=== PATIENT | male | born 1945 | race Caucasian/White ===

== ENCOUNTER 2021-02-02 14:31 | Emergency (ER) | payer BC ==
[~2021-02-02] VITALS: Ht 188 cm; Wt 90.0 kg
[2021-02-02 14:41] VITALS: BP 123/80
--- NOTE | 2021-02-02 14:46 | PHYS DOC ---
General Adult EDM: Chief Complaint: HAND PROBLEM HPI: HPI: Patient is a 75 year old man who presents to the ED today with a fishhook in the left hand that occurred prior to coming to the ED. Review of Systems: Review of Systems: Constitutional: Denies fever or chills. [] Musculoskeletal: Denies back pain or joint pain. [] Integument: Reports fishhook to the left hand Neurologic: Denies headache, focal weakness or sensory changes. [] Psychiatric: Denies depression or anxiety. [] Heart Score: C/O Chest Pain: N/A Risk Factors: Risk Factors: DM, Current or recent (<one month) smoker, HTN, HLP, family history of CAD, obesity. Risk Scores: Score 0 - 3: 2.5% MACE over next 6 weeks - Discharge Home Score 4 - 6: 20.3% MACE over next 6 weeks - Admit for Clinical Observation Score 7 - 10: 72.7% MACE over next 6 weeks - Early Invasive Strategies Current Medications: Current Medications Medications (Trade) Dose Ordered Sig/Tyra Start Time Stop Time Status Last Admin Dose Admin Lidocaine HCl (Buffered Lidocaine 1%) 3 ml 1X ONCE 02/02/21 14:45 02/02/21 14:46 UNV Allergies: Allergies: Allergies Coded Allergies Type Severity Reaction Last Updated Verified No Known Drug Allergies 02/02/21 No Physical Exam: PE: Constitutional: Well developed, well nourished, no acute distress, non-toxic appearance. [] Skin: Left hand between the webspace of the thumb and index finger with 2 fishhooks. Range of motion and neurovascular exam is intact to the left hand and fingers. +2 left radial pulse. Cap refill less than 2 seconds to left fingers Back: No tenderness, no CVA tenderness. [] Extremities: No tenderness, no cyanosis, no clubbing, ROM intact, no edema. [] Neurologic: Alert and oriented X 3, normal motor function, normal sensory function, no focal deficits noted. [] Psychologic: Affect normal, judgement normal, mood normal. [] EKG: EKG: [] Radiology/Procedures: Radiology/Procedures: Indication: Fish hooks in the left hand Procedure: The area of the foreign body was left hand. The area was cleaned with normal saline. Local anesthesia over the foreign body site was 1% of buffered lidocaine. The fishhook was cut to remove the day with pliers, the remaining part attached to the skin was threaded through the skin and removed successfully. After the procedure dressing was applied today area. The patient's tetanus status was updated The patient tolerated the procedure well Complications: none Course & Med Decision Making: Course & Med Decision Making Pertinent Labs and Imaging studies reviewed. (See chart for details) This is a 75-year-old male patient presented to the ED today with two fishhooks in the webspace between the index finger and thumb. Fishhooks were removed by me successfully. Tetanus updated. Wound care instructions and return precautions provided Dragon Disclaimer: Dragon Disclaimer: This electronic medical record was generated, in whole or in part, using a voice recognition dictation system. Departure Departure Impression: Primary Impression: Fish hook injury of left hand Qualified Codes: S69.92XA - Unspecified injury of left wrist, hand and finger(s), initial encounter Disposition: HOME / SELF CARE / HOMELESS Condition: STABLE Patient Instructions: Fish Hook Removal Additional Instructions: We removed the fishhooks from your left hand. Keep the area clean and dry. You can apply Neosporin to the open wounds. Monitor the wounds for signs of in fection including increased redness, warmth, yellow drainage from the areas and return to the ED or see your own doctor today. SANA MENESES APRN Feb 02, 2021 14:45
[2021-02-02] MEDS ORDERED: DIPH,PERTUSS(ACELL),TET VAC/PF 0.5 ML SYRINGE. VAX IM ONE ×2 (14:47→15:00)
[2021-02-02] MEDS ORDERED: LIDOCAINE WITH 8.4% SOD BICARB 3 ML DISP.SYRIN. INJ ONE (15:00)
== END 2021-02-02 16:07 | disposition home or self-care (01) ==
LOC: ER 14:31
DX: S60.552A Superficial foreign body of left hand, initial encounter (principal); X58.XXXA Exposure to other specified factors, initial encounter; Y93.89 Activity, other specified; Y92.89 Other specified places as the place of occurrence of the external cause; Y99.8 Other external cause status
CPT/HCPCS: 90471; 90715; 99284; J3490